=== PATIENT | male | born 1950 | race Caucasian/White ===

== ENCOUNTER 2018-10-07 10:00 | Emergency (ER) | payer MEDICARE, OTHER ==
[~2018-10-07] VITALS: Ht 175.3 cm; Wt 72.6 kg
[~2018-10-07 10:00] MED LIST: ALBU90OI6 INH; ALBU90OI61 INH; AMOX500 PO; ASPI81EC PO; AZELASTINE137 MCG/0.; Amoxicillin500 MG PO; BENZ100A PO; Biaxin500 MG PO; ESBRIET267 MG PO; ISOMON30 PO; LORA10 PO; MAGOXI400 PO; MELA3 PO; OMEP20ER PO; Prilosec20 MG PO; VITAMIN D-32000 UNIT
[2018-10-07] MEDS ORDERED: ASPI81CH PO (10:19)
[2018-10-07] MEDS ORDERED: Zantac150 MG PO (10:19)
[2018-10-07] MEDS ORDERED: FAMO20 PO (10:19)
[2018-10-07] MEDS ORDERED: CETI5 PO (10:20)
[2018-10-07 10:56] LABS: BASOPHILS ABSOLUTE AUTO 0.02 K/mm3 (0.00-0.23); BASOPHILS PERCENT AUTO 0 % (0-2); EOSINOPHILS ABSOLUTE AUTO 0.03 K/mm3 (0.00-0.68); EOSINOPHILS PERCENT AUTO 0 % (0-6); Hematocrit 45.8 % (37.0-53.0); IMMATURE GRAN ABSOLUTE AUTO 0.01 K/mm3 (0.00-0.10); IMMATURE GRAN PERCENT AUTO 0 % (0-1); LYMPHOCYTES ABSOLUTE AUTO 1.56 K/mm3 (0.84-5.20); LYMPHOCYTES PERCENT AUTO 23 % (21-46); MONOCYTES ABSOLUTE AUTO 0.69 K/mm3 (0.16-1.47); MONOCYTES PERCENT AUTO 10 % (4-13); Mean Corpuscular HGB 30.5 pg (26.0-34.0); Mean Corpuscular HGB Conc 32.8 g/dL (31.5-36.5); Mean Corpuscular Volume 93 fL (80-100); Mean Platelet Volume 9.8 fL (9.1-12.4); NEUTROPHILS ABSOLUTE AUTO 4.47 K/mm3 (1.96-9.15); NEUTROPHILS PERCENT AUTO 66 % (41-73); Platelet Count 208 K/mm3 (150-400); RDW Coefficient Variation 13.2 % (11.7-14.2); RDW Standard Deviation 45.2 fL (35.1-46.3); Red Blood Cell Count 4.92 M/mm3 (4.30-5.90); White Blood Cell Count 6.78 K/mm3 (4.00-11.30)
[2018-10-07 11:13] LABS: Alanine Aminotransfer (ALT/SGP 30 U/L (12-78); Albumin, Blood 3.9 g/dL (3.4-5.0); Alk Phos 101 U/L (50-136); Anion Gap 4 mmol/L (6-16); Aspartate Aminotrans (AST/SGOT 28 U/L (12-37); Bilirubin, Total 0.5 mg/dL (0.1-1.0); Blood Urea Nitrogen 15 mg/dL (8-24); CO2, Blood 29 mmol/L (21-32); Calcium, Blood 8.9 mg/dL (8.5-10.1); Chloride, Blood 106 mmol/L (98-108); Creatinine, Blood 0.88 mg/dL (0.60-1.20); Globulin, Blood 4.1 g/dL (2.2-4.0); Glomerular Filtration Rate >60 (60-); Glucose, Blood 86 mg/dL (70-99); Potassium, Blood 4.1 mmol/L (3.5-5.5); Sodium, Blood 139 mmol/L (136-145)
== END 2018-10-07 13:01 | disposition home or self-care (01) ==
LOC: ER 10:00
PROVIDERS: Emergency Medicine
DX: H53.461 Homonymous bilateral field defects, right side (principal); H53.8 Other visual disturbances; Z86.73 Personal history of transient ischemic attack (TIA), and cerebral infarction without residual deficits; Z79.899 Other long term (current) drug therapy; Z87.891 Personal history of nicotine dependence
CPT/HCPCS: 36415; 70551; 80053; 85025; 99284-25

== ENCOUNTER 2019-05-08 11:32 | Emergency (ER) | payer MEDICARE, OTHER ==
[~2019-05-08] VITALS: Ht 175.3 cm; Wt 70.3 kg
[~2019-05-08 11:32] MED LIST changes: +Aspirin EC81 MG PO; +FAMO20 PO; +ZYRTEC10 M2 PO; +Zantac150 MG PO
[2019-05-08] MEDS ORDERED: GABA100 PO (11:47)
[2019-05-08 12:18] LABS: BASOPHILS ABSOLUTE AUTO 0.02 K/mm3 (0.00-0.23); BASOPHILS PERCENT AUTO 0 % (0-2); EOSINOPHILS ABSOLUTE AUTO 0.04 K/mm3 (0.00-0.68); EOSINOPHILS PERCENT AUTO 1 % (0-6); Hemoglobin 15.2 g/dL (13.5-17.5); IMMATURE GRAN ABSOLUTE AUTO 0.01 K/mm3 (0.00-0.10); IMMATURE GRAN PERCENT AUTO 0 % (0-1); LYMPHOCYTES ABSOLUTE AUTO 1.57 K/mm3 (0.84-5.20); LYMPHOCYTES PERCENT AUTO 21 % (21-46); MONOCYTES ABSOLUTE AUTO 0.75 K/mm3 (0.16-1.47); MONOCYTES PERCENT AUTO 10 % (4-13); Mean Corpuscular HGB 31.9 pg (26.0-34.0); Mean Corpuscular Volume 97 fL (80-100); Mean Platelet Volume 10.2 fL (9.1-12.4); NEUTROPHILS ABSOLUTE AUTO 4.95 K/mm3 (1.96-9.15); NEUTROPHILS PERCENT AUTO 68 % (41-73); Platelet Count 194 K/mm3 (150-400); RDW Standard Deviation 46.7 fL (35.1-46.3); Red Blood Cell Count 4.76 M/mm3 (4.30-5.90); White Blood Cell Count 7.34 K/mm3 (4.00-11.30)
[2019-05-08 12:36] LABS: Alanine Aminotransfer (ALT/SGP 35 U/L (12-78); Alk Phos 94 U/L (50-136); Anion Gap 2 mmol/L (6-16); Aspartate Aminotrans (AST/SGOT 31 U/L (12-37); Bilirubin, Total 0.3 mg/dL (0.1-1.0); Blood Urea Nitrogen 18 mg/dL (8-24); CO2, Blood 30 mmol/L (21-32); Chloride, Blood 106 mmol/L (98-108); Creatinine, Blood 0.72 mg/dL (0.60-1.20); Globulin, Blood 4.1 g/dL (2.2-4.0); Glomerular Filtration Rate >60 (60-); Glucose, Blood 72 mg/dL (70-99); Sodium, Blood 138 mmol/L (136-145); Total Protein, Blood 8.1 g/dL (6.4-8.2)
[2019-05-08 12:37] LABS: Troponin I <0.015 ng/mL (0.000-0.040)
== END 2019-05-08 14:02 | disposition home or self-care (01) ==
LOC: ER 11:32
PROVIDERS: Emergency Medicine
DX: R00.1 Bradycardia, unspecified (principal); Z87.891 Personal history of nicotine dependence
CPT/HCPCS: 36415; 71046; 80053; 83880; 84484; 85025; 93005; 93010; 93225; 93226

== ENCOUNTER 2019-05-25 10:35 | Day surgery (SDC) | payer MEDICARE, OTHER ==
[~2019-05-25] VITALS: Ht 175.3 cm; Wt 72.1 kg
[~2019-05-25 10:35] MED LIST changes: +GABA100 PO
--- NOTE | 2019-05-25 11:25 | NUR ---
05/25/19 1125 Virginia Torres FIRST IV ATTEMPT IN RIGHT HAND INFILTRATED. SECOND ATTEMPT IN RIGHT FOREARM WAS SUCCESSFUL AND TOLERATED WELL. BOTH BY [email or web address]
== END 2019-05-25 12:45 | disposition home or self-care (01) ==
LOC: ORSCSDS 10:35
PROVIDERS: Internal Medicine Gastroenterology
PROC: 0DB58ZX Excision of Esophagus, Via Natural or Artificial Opening Endoscopic, Diagnostic (ICD-10-PCS; principal; 2019-05-25 12:00)
DX: R05 Cough (principal); Z86.73 Personal history of transient ischemic attack (TIA), and cerebral infarction without residual deficits; Z87.891 Personal history of nicotine dependence; Z79.899 Other long term (current) drug therapy
CPT/HCPCS: J2704; J7120

== ENCOUNTER 2019-08-18 08:51 | Day surgery (SDC) | payer MEDICARE, OTHER ==
[~2019-08-18] VITALS: Ht 175.3 cm; Wt 71.3 kg
[~2019-08-18 08:51] MED LIST changes: +LANS30EC PO
--- NOTE | 2019-08-18 10:16 | NUR ---
MD AT BEDSIDE TO DISCUSS PROCEDURE WITH PT. PLAN FOR PT TO STAY OVER NIGHT AFTER PROCEDURE.
--- NOTE | 2019-08-18 13:29 | NUR ---
ASSUMED CARE: PT [facility]. DR HUDSON CALLED AND CONFIRMED THAT HE WANTS PT TO STAY IN HOUSE UNTIL TOMORROW AM. XRAY ORDERED FOR AM , DR WARNER STAFF TO INTERROGATE PACER IN AM. CONFIRMED ABX ORDER WITH DR HUDSON. PT INDEPENDENT IN ROOM, SLING IN PLACE. DENIES CONCERNS. STATES SITE ACHEY BUT DECLINES OFFERING OF ICE OR PAIN MEDICATION. NO FURTHER NEEDS OR CONCERNS AT THIS TIME.
--- NOTE | 2019-08-18 17:49 | NUR ---
SHIFT SUMMARY: PT'S PACER SITE WITH IODINE DRAINING THROUGH BUT NO SWELLING, BRUISING, BLEEDING OR CREPITUS NOTED. DAUGHTER AT BEDSIDE AT THIS TIME WITH PLAN FOR HER TO TAKE HIM HOME AFTER XRAY AND INTERROGATION IS COMPLETED. CRUISE STAFF MEMBER AWARE.
--- NOTE | 2019-08-19 06:13 | NUR ---
SHIFT SUMMARY PATIENT PLEASENT AND COOPERATIVE THROUGHOUT THE NIGHT. PATIENT'S PACEMAKER SITE APPEARS SOFT WITH NO SIGNS OF NEW BLEEDING OR BRUISING. NO CHANGES NOTED. SLING IN PLACE. PATIENT APPEARED TO SLEEP ON AND OFF THROUGHOUT THE NIGHT. PATIENT INDEPENDENT AND HAS BEEN UP ON WALKS FREQUENTLY THROUGHOUT THE NIGHT. PATIENT CURRENTLY AWAKE IN ROOM AND SITTING UP IN THE CHAIR. PATIENT CHEERFUL AND IN GOOD SPIRITS THIS MORNING. VITAL SIGNS CHARTED. WILL CONTINUE TO MONITOR PATIENT AND REPORT TO ZOYA EATON.
--- NOTE | 2019-08-19 07:16 | NUR ---
UPDATE PATIENT PROVIDED WITH DISCHARGE INSTRUCTIONS, MOVMENT RESTRICTIONS, AND PAPERS. PATIENT DENIED ANY QUESTIONS. PATIENT WAITING ON RIDE HOME AT THIS TIME.
--- NOTE | 2019-08-19 07:23 | NUR ---
UPDATE PATIENT RIDE ARRIVED. PATIENT DISCHARGED AT THIS TIME. ALL BELONGINGS SENT WITH PATIENT. PATIENT DENIED ANY QUESTIONS.
--- NOTE | 2019-08-19 07:27 | NUR ---
ASSUMED CARE: NIGHT RN AT BEDSIDE CHANGING PACEMAKER DRESSING. INSTRUCTIONS HAD BEEN GIVEN AND IV REMOVED BY NIGHT RN. PT'S DAUGHTER ARRIVED AT 0720 AND PT AMBULATED OUT OF THE BUILDING.
== END 2019-08-19 07:23 | disposition home or self-care (01) ==
LOC: MHTC 08:51 → PCU 13:10 → MHTC 08-19 07:23
DX: I49.5 Sick sinus syndrome (principal); K21.9 Gastro-esophageal reflux disease without esophagitis; J84.10 Pulmonary fibrosis, unspecified; R07.89 Other chest pain; Z79.899 Other long term (current) drug therapy; Z87.891 Personal history of nicotine dependence; Z79.82 Long term (current) use of aspirin
CPT/HCPCS: 33208; 71045; 71046; 76937; 93005; 93010; 99152; 99153; A9270-GY; C1785; C1894; C1898; J0690; J1644; J2250; J3010; J7030; J7040; J7050

== ENCOUNTER 2019-08-21 16:39 | Emergency (ER) | payer MEDICARE, OTHER ==
[2019-08-21 17:11] LABS: Source, Urine Clean Catch
[2019-08-21 17:16] LABS: Bilirubin, Urine Neg (Neg); Blood, Urine Neg (Neg); Glucose Qualitative, Urine Neg (Neg); Ketones, Urine 1+ (Neg); Leukocyte Esterase, Urine Neg (Neg); Nitrite, Urine Neg (Neg); Protein, Urine Neg (Neg); Urobilinogen, Urine NORM (Normal)
[2019-08-21 17:35] LABS: Appearance, Urine Clear (Clear); Color, Urine Yellow (P-Yellow); Urine Culture Indicated No (No)
[2019-08-21 17:36] LABS: BASOPHILS ABSOLUTE AUTO 0.02 K/mm3 (0.00-0.23); BASOPHILS PERCENT AUTO 0 % (0-2); EOSINOPHILS ABSOLUTE AUTO 0.04 K/mm3 (0.00-0.68); EOSINOPHILS PERCENT AUTO 1 % (0-6); Hematocrit 44.1 % (37.0-53.0); Hemoglobin 14.7 g/dL (13.5-17.5); IMMATURE GRAN ABSOLUTE AUTO 0.01 K/mm3 (0.00-0.10); IMMATURE GRAN PERCENT AUTO 0 % (0-1); LYMPHOCYTES ABSOLUTE AUTO 1.86 K/mm3 (0.84-5.20); LYMPHOCYTES PERCENT AUTO 24 % (21-46); MONOCYTES ABSOLUTE AUTO 0.74 K/mm3 (0.16-1.47); MONOCYTES PERCENT AUTO 10 % (4-13); Mean Corpuscular HGB 31.3 pg (26.0-34.0); Mean Corpuscular HGB Conc 33.3 g/dL (31.5-36.5); Mean Corpuscular Volume 94 fL (80-100); Mean Platelet Volume 10.2 fL (9.1-12.4); NEUTROPHILS ABSOLUTE AUTO 5.13 K/mm3 (1.96-9.15); NEUTROPHILS PERCENT AUTO 66 % (41-73); Platelet Count 178 K/mm3 (150-400); RDW Coefficient Variation 12.6 % (11.7-14.2); RDW Standard Deviation 43.6 fL (35.1-46.3); Red Blood Cell Count 4.69 M/mm3 (4.30-5.90)
[2019-08-21 18:01] LABS: Alanine Aminotransfer (ALT/SGP 23 U/L (12-78); Albumin, Blood 3.8 g/dL (3.4-5.0); Alk Phos 92 U/L (50-136); Anion Gap 7 mmol/L (6-16); Aspartate Aminotrans (AST/SGOT 27 U/L (12-37); Bilirubin, Total 0.7 mg/dL (0.1-1.0); Blood Urea Nitrogen 11 mg/dL (8-24); Bun/Creatinine Ratio 13.9 (12.0-20.0); CO2, Blood 28 mmol/L (21-32); Calcium, Blood 8.9 mg/dL (8.5-10.1); Chloride, Blood 103 mmol/L (98-108); Creatinine, Blood 0.79 mg/dL (0.60-1.20); Glomerular Filtration Rate >60 (60-); Glucose, Blood 103 mg/dL (70-99); Potassium, Blood 3.9 mmol/L (3.5-5.5); Sodium, Blood 138 mmol/L (136-145); Total Protein, Blood 7.8 g/dL (6.4-8.2); Troponin I 0.018 ng/mL (0.000-0.040)
== END 2019-08-21 18:50 | disposition home or self-care (01) ==
PROVIDERS: Physician Assistant
DX: R53.1 Weakness (principal); Z95.0 Presence of cardiac pacemaker; Z79.82 Long term (current) use of aspirin; Z79.899 Other long term (current) drug therapy; Z86.73 Personal history of transient ischemic attack (TIA), and cerebral infarction without residual deficits; Z87.891 Personal history of nicotine dependence

== ENCOUNTER 2019-12-19 22:37 | Emergency (ER) | payer MEDICARE, OTHER ==
[~2019-12-19] VITALS: Ht 175.3 cm; Wt 72.6 kg
[2019-12-19] MEDS ORDERED: OMEP20ER PO (23:13)
== END 2019-12-20 02:16 | disposition home or self-care (01) ==
LOC: ER 22:37
DX: S01.111A Laceration without foreign body of right eyelid and periocular area, initial encounter (principal); Z86.73 Personal history of transient ischemic attack (TIA), and cerebral infarction without residual deficits; Z95.0 Presence of cardiac pacemaker; Z87.891 Personal history of nicotine dependence; Z79.82 Long term (current) use of aspirin; Z79.899 Other long term (current) drug therapy; Z23 Encounter for immunization; W01.198A Fall on same level from slipping, tripping and stumbling with subsequent striking against other object, initial encounter
CPT/HCPCS: 12011; 90471; 90714; 99283-25

== ENCOUNTER 2020-07-28 09:18 | Observation (INO) | payer MEDICARE, OTHER ==
[~2020-07-28] VITALS: Ht 175.3 cm; Wt 74.8 kg
[~2020-07-28 09:18] MED LIST changes: -GABA100 PO
[2020-07-28 11:02] LABS: BASOPHILS ABSOLUTE AUTO 0.02 K/mm3 (0.00-0.23); BASOPHILS PERCENT AUTO 0 % (0-2); EOSINOPHILS ABSOLUTE AUTO 0.03 K/mm3 (0.00-0.68); EOSINOPHILS PERCENT AUTO 0 % (0-6); Hematocrit 42.9 % (37.0-53.0); Hemoglobin 14.3 g/dL (13.5-17.5); IMMATURE GRAN ABSOLUTE AUTO 0.02 K/mm3 (0.00-0.10); IMMATURE GRAN PERCENT AUTO 0 % (0-1); LYMPHOCYTES ABSOLUTE AUTO 1.39 K/mm3 (0.84-5.20); LYMPHOCYTES PERCENT AUTO 17 % (21-46); MONOCYTES ABSOLUTE AUTO 0.75 K/mm3 (0.16-1.47); MONOCYTES PERCENT AUTO 9 % (4-13); Mean Corpuscular HGB 30.8 pg (26.0-34.0); Mean Corpuscular HGB Conc 33.3 g/dL (31.5-36.5); Mean Corpuscular Volume 92 fL (80-100); Mean Platelet Volume 9.6 fL (9.1-12.4); NEUTROPHILS PERCENT AUTO 73 % (41-73); Platelet Count 192 K/mm3 (150-400); RDW Coefficient Variation 12.8 % (11.7-14.2); RDW Standard Deviation 43.7 fL (35.1-46.3); Red Blood Cell Count 4.65 M/mm3 (4.30-5.90); White Blood Cell Count 8.21 K/mm3 (4.00-11.30)
[2020-07-28 11:24] LABS: Alanine Aminotransfer (ALT/SGP 23 U/L (12-78); Albumin, Blood 3.6 g/dL (3.4-5.0); Albumin/Globulin Ratio 0.9 (0.8-1.8); Alk Phos 82 U/L (50-136); Anion Gap 1 mmol/L (6-16); Aspartate Aminotrans (AST/SGOT 25 U/L (12-37); Bilirubin, Total 0.4 mg/dL (0.1-1.0); Blood Urea Nitrogen 11 mg/dL (8-24); CO2, Blood 31 mmol/L (21-32); Chloride, Blood 103 mmol/L (98-108); Creatinine, Blood 0.73 mg/dL (0.60-1.20); Globulin, Blood 4.1 g/dL (2.2-4.0); Glomerular Filtration Rate >60 (60-); Glucose, Blood 97 mg/dL (70-99); Potassium, Blood 4.9 mmol/L (3.5-5.5); Sodium, Blood 135 mmol/L (136-145); Total Protein, Blood 7.7 g/dL (6.4-8.2); Troponin I <0.015 ng/mL (0.000-0.040)
[2020-07-28] MEDS ORDERED: GABA300 PO (12:03)
[2020-07-28] MEDS ORDERED: OMEP20ER PO (12:04)
[2020-07-28] MEDS ORDERED: ASPI81CH PO (13:11)
[2020-07-28] MEDS ORDERED: MAG-OXIDE MAGN200 MG PO (13:14)
[2020-07-28] MEDS ORDERED: ZYRTEC10 M2 PO (13:16)
--- NOTE | 2020-07-28 17:36 | NUR ---
PT ARRIVED TO THE MEDICAL FLOOR AT 1308 FROM THE ER VIA WHEELCHAIR A/OX3, PLEASANT AND COOPERATIVE ACCOMPANIED BY HIS DAUGHTER, DR. MILIAN WAS NOTIFIED OF THE PATIENTS ARRIVAL AND CAME TO SEE THE PATIENT AT THE BEDSIDE, NEW ORDERS WERE GIVEN, THE PT WAS ORIENTED TO THE ROOM LAYOUT AND CALL SYSTEM, OXYGEN WAS APPLIED AT 6L/MIN VIA NC WITH HUMIDIFIER, THE PT REPORTED THAT HE STILL HAD SOME CHEST PRESSURE MORE THAN PAIN AT 2/10, THE PT DENIED ANY SOB OR NAUSEA AT REST,PT WAS ABLE TO ANSWER ALL QUESTIONS APPROPRIATLY, PT IS UP IND TO THE BATHROOM, CALL LIGHT IN REACH, WILL CONTINUE TO MONITOR AND ASSESS FOR CHANGES
[2020-07-28 17:40] LABS: Influenza A, PCR NEGATIVE (NEGATIVE); Influenza B, PCR NEGATIVE (NEGATIVE); Resp Syncytial Virus, PCR NEGATIVE (NEGATIVE); SARS-Cov-2 (COVID-19) PCR, MMC NEGATIVE (NEGATIVE)
--- NOTE | 2020-07-29 04:46 | NUR ---
SHIFT SUMMARY NO ACUTE CHANGES THIS SHIFT. PT SLEPT THROUGH MUCH OF THE NIGHT. RT TURNED O2 DOWN FROM 6 L VIA HIGH FLOW TO 5 L. O2 SATS IN THE HIGH 90'S. PT CONTINUES TO REPORT CHEST PRESSURE TO LEFT CHEST WALL. UNCHANGED FROM ADMISSION. REPORTS SOME SHORTNESS OF BREATH, SLIGHTLY WORSE THAN HIS BASELINE. CHRONIC FREQUENT DRY COUGH. LUNG SOUNDS COARSE THROUGHOUT. NO EVENTS ON TELEMETRY. READING SR IN THE 80'S THROUGHOUT THE NIGHT. VITAL SIGNS STABLE. WILL CONTINUE TO MONITOR AND REPORT TO DAY RN.
--- NOTE | 2020-07-29 16:24 | NUR ---
PT IS A/OX3, PLEASANT AND COOPERATIVE, THE PT IS UP IND IN HIS ROOM, THE PT REPORTS FEELING HE IS BREATHING A LITTLE BETTER TODAY, PTS CHEST LEFT SIDED CHEST PRESSURE REMAINS MINIMAL AT 1/10, PT REPORTS USEING LESS O2 AT REST TODAY COMPARED TO YESTERDAY, CALL LIGHT IN REACH, WILL CONTINUE TO MONITOR AND ASSESS FOR CHANGES
--- NOTE | 2020-07-30 05:09 | NUR ---
SHIFT SUMMARY PATIENT ALERT AND ORIENTED. HAD NO COMPLAINTS OF PAIN OR SHORTNESS OF BREATH. DID NOT NEED TO USE ANY OXYGEN OVERNIGHT. PATIENT SLEPT WELL AND HAD MINIMAL NEEDS. IV PATENT AND FLUSHED. BED IN LOWEST POSITION WITH WHEELS LOCKED AND ALARM ON. CALL LIGHT WITHIN REACH. REPORT GIVEN TO ONCOMING RN.
[2020-07-30] MEDS ORDERED: AZIT500 PO (09:30)
[2020-07-30] MEDS ORDERED: ALBU2.5V5 INH (09:30)
[2020-07-30] MEDS ORDERED: VISBIOME 112.51 EACH PO (09:32)
[2020-07-30] MEDS ORDERED: NASAL SPRAY88 ML (09:32)
[2020-07-30] MEDS ORDERED: CEPH500 PO (09:33)
[2020-07-30] MEDS ORDERED: PRED20 PO (09:34)
--- NOTE | 2020-07-30 10:30 | NUR ---
DISCHARGE INSTRUCTIONS COMPLETED AND DISCUSSED WITH PT EXPRESSING UNDERSTANDING. SCRIPTS FAXED TO [facility]. NEBULIZER MACHINE TO BE ORDERED THROUGH [facility] BY [facility]. TO [facility] VIA W/C WITH DAUGHTER IN ATTENDANCE.
== END 2020-07-30 09:57 | disposition home or self-care (01) ==
LOC: ER 09:18 → MEDS 09:19
PROVIDERS: Emergency Medicine; ADMIT Family Medicine
DX: R07.89 Other chest pain (principal); J96.21 Acute and chronic respiratory failure with hypoxia; K21.9 Gastro-esophageal reflux disease without esophagitis; G62.9 Polyneuropathy, unspecified; J84.10 Pulmonary fibrosis, unspecified; Z87.891 Personal history of nicotine dependence; Z86.73 Personal history of transient ischemic attack (TIA), and cerebral infarction without residual deficits
CPT/HCPCS: 0241U; 36415; 71045; 80053; 83880; 84145; 84484; 85025; 93005; 93010; 94760; 96365; 96366; 96372; 99285-25; A9270; A9270-GY; G0378; J0696; J1650; J7512

== ENCOUNTER → 2021-03-14 | Outpatient (CLI) | payer MEDICARE, OTHER ==
[~2021-03-14] MED LIST changes: +ALBU2.5V5 INH; +ASPI81CH PO; +AZIT500 PO; +CEPH500 PO; +DECADRON6 M1 PO; +GABA300 PO; +MAG-OXIDE MAGN200 MG PO; +NASAL SPRAY88 ML; +PRED20 PO; +VISBIOME 112.51 EACH PO
[2021-03-14 09:02] LABS: BASOPHILS ABSOLUTE AUTO 0.02 K/mm3 (0.00-0.23); BASOPHILS PERCENT AUTO 0 % (0-2); EOSINOPHILS ABSOLUTE AUTO 0.04 K/mm3 (0.00-0.68); EOSINOPHILS PERCENT AUTO 0 % (0-6); Hematocrit 42.8 % (37.0-53.0); Hemoglobin 14.5 g/dL (13.5-17.5); IMMATURE GRAN ABSOLUTE AUTO 0.04 K/mm3 (0.00-0.10); IMMATURE GRAN PERCENT AUTO 0 % (0-1); LYMPHOCYTES ABSOLUTE AUTO 1.39 K/mm3 (0.84-5.20); LYMPHOCYTES PERCENT AUTO 14 % (21-46); MONOCYTES ABSOLUTE AUTO 0.73 K/mm3 (0.16-1.47); MONOCYTES PERCENT AUTO 8 % (4-13); Mean Corpuscular HGB 30.7 pg (26.0-34.0); Mean Corpuscular HGB Conc 33.9 g/dL (31.5-36.5); Mean Corpuscular Volume 91 fL (80-100); Mean Platelet Volume 9.9 fL (9.1-12.4); NEUTROPHILS PERCENT AUTO 77 % (41-73); Platelet Count 230 K/mm3 (150-400); RDW Coefficient Variation 13.6 % (11.7-14.2); RDW Standard Deviation 45.3 fL (35.1-46.3); Red Blood Cell Count 4.73 M/mm3 (4.30-5.90); White Blood Cell Count 9.62 K/mm3 (4.00-11.30)
[2021-03-14 09:49] LABS: Alanine Aminotransfer (ALT/SGP 28 U/L (12-78); Albumin, Blood 3.8 g/dL (3.4-5.0); Albumin/Globulin Ratio 0.9 (0.8-1.8); Alk Phos 97 U/L (50-136); Anion Gap 6 mmol/L (6-16); Aspartate Aminotrans (AST/SGOT 32 U/L (12-37); Bilirubin, Total 0.4 mg/dL (0.1-1.0); Blood Urea Nitrogen 12 mg/dL (8-24); Bun/Creatinine Ratio 14.1 (12.0-20.0); CO2, Blood 29 mmol/L (21-32); Calcium, Blood 9.2 mg/dL (8.5-10.1); Chloride, Blood 106 mmol/L (98-108); Creatinine, Blood 0.85 mg/dL (0.60-1.20); Globulin, Blood 4.2 g/dL (2.2-4.0); Glomerular Filtration Rate >60 (60-); Glucose, Blood 103 mg/dL (70-99); Potassium, Blood 4.5 mmol/L (3.5-5.5); Sodium, Blood 141 mmol/L (136-145)
== END | disposition home or self-care (01) ==
LOC: LAB SHORT 08:56 → LAB 08:56
PROVIDERS: General Practice
DX: J44.9 Chronic obstructive pulmonary disease, unspecified (principal)
CPT/HCPCS: 80053; 85025

== ENCOUNTER 2021-03-20 10:33 | Emergency (ER) | payer MEDICARE, OTHER ==
[~2021-03-20] VITALS: Ht 175.3 cm; Wt 74.8 kg
[~2021-03-20 10:33] MED LIST changes: -DECADRON6 M1 PO
[2021-03-20] MEDS ORDERED: DECADRON6 M1 PO (13:16)
== END 2021-03-20 13:44 | disposition home or self-care (01) ==
LOC: ER 10:33
DX: U07.1 COVID-19 (principal); J84.10 Pulmonary fibrosis, unspecified; Z88.8 Allergy status to other drugs, medicaments and biological substances; Z79.82 Long term (current) use of aspirin; Z79.899 Other long term (current) drug therapy
CPT/HCPCS: 99284; J1100

== ENCOUNTER → 2021-03-20 | Outpatient (CLI) | payer MEDICARE, OTHER ==
[2021-03-20 10:05] LABS: BASOPHILS ABSOLUTE AUTO 0.03 K/mm3 (0.00-0.23); BASOPHILS PERCENT AUTO 0 % (0-2); EOSINOPHILS ABSOLUTE AUTO 0.01 K/mm3 (0.00-0.68); EOSINOPHILS PERCENT AUTO 0 % (0-6); Hematocrit 44.3 % (37.0-53.0); Hemoglobin 14.9 g/dL (13.5-17.5); IMMATURE GRAN ABSOLUTE AUTO 0.03 K/mm3 (0.00-0.10); IMMATURE GRAN PERCENT AUTO 0 % (0-1); LYMPHOCYTES ABSOLUTE AUTO 0.88 K/mm3 (0.84-5.20); LYMPHOCYTES PERCENT AUTO 10 % (21-46); MONOCYTES ABSOLUTE AUTO 0.91 K/mm3 (0.16-1.47); MONOCYTES PERCENT AUTO 11 % (4-13); Mean Corpuscular HGB 30.5 pg (26.0-34.0); Mean Corpuscular HGB Conc 33.6 g/dL (31.5-36.5); Mean Corpuscular Volume 91 fL (80-100); Mean Platelet Volume 9.7 fL (9.1-12.4); NEUTROPHILS ABSOLUTE AUTO 6.67 K/mm3 (1.96-9.15); NEUTROPHILS PERCENT AUTO 78 % (41-73); Platelet Count 221 K/mm3 (150-400); RDW Coefficient Variation 13.4 % (11.7-14.2); RDW Standard Deviation 45.1 fL (35.1-46.3); Red Blood Cell Count 4.89 M/mm3 (4.30-5.90); White Blood Cell Count 8.53 K/mm3 (4.00-11.30)
[2021-03-20 10:32] LABS: Alanine Aminotransfer (ALT/SGP 38 U/L (12-78); Albumin, Blood 4.3 g/dL (3.4-5.0); Alk Phos 98 U/L (40-126); Anion Gap 11 mmol/L (6-16); Aspartate Aminotrans (AST/SGOT 37 U/L (12-37); Bilirubin, Total 0.9 mg/dL (0.1-1.0); Blood Urea Nitrogen 11 mg/dL (8-24); CO2, Blood 27 mmol/L (21-32); Calcium, Blood 9.3 mg/dL (8.5-10.1); Chloride, Blood 99 mmol/L (98-108); Creatinine, Blood 0.92 mg/dL (0.60-1.20); Globulin, Blood 4.2 g/dL (2.2-4.0); Glomerular Filtration Rate >60 (60-); Glucose, Blood 99 mg/dL (70-99); Potassium, Blood 4.3 mmol/L (3.5-5.5); Sodium, Blood 137 mmol/L (136-145); Total Protein, Blood 8.5 g/dL (6.4-8.2)
== END | disposition home or self-care (01) ==
LOC: LAB SHORT 10:00 → LAB 10:00
PROVIDERS: General Practice
DX: R06.00 Dyspnea, unspecified (principal)
CPT/HCPCS: 80053; 85025